=== PATIENT | female | born 1935 | race Two or more races ===

== ENCOUNTER 2020-07-22 21:35 | Emergency (ER) | payer MEDICARE ==
[~2020-07-22] VITALS: Ht 149.9 cm; Wt 60.8 kg
--- NOTE | 2020-07-22 21:59 | NUR ---
ED Nurse Note: Pt walked in from home. Fletcher is axox4 and walks with a steady gait. She states that she was at home and had a ground level fall while in her back yard. She states that she hit her head but did not experience LOC. She presents with purple discoloring raised area above her left eye. She denies blood thinners, asa or drinking alcholol. She also describes severe pain in both shoulders.
[2020-07-22 22:06] VITALS: BP 165/85
[2020-07-22] MEDS ORDERED: Tylenol #3 tab (300mg/30mg) ORAL ONE (22:15)
--- NOTE | 2020-07-22 22:41 | Diagnostic Imaging Report ---
EXAM: CT Head Without Intravenous Contrast CLINICAL HISTORY: PAIN TECHNIQUE: Axial computed tomography images of the head/brain without intravenous contrast. CTDI is 53.4 mGy and DLP is 929.1 mGy-cm. One or more of the following dose reduction techniques were used: automated exposure control, adjustment of the mA and/or kV according to patient size, use of iterative reconstruction technique. COMPARISON: No relevant prior studies available. FINDINGS: Brain: There is age appropriate generalized cerebral atrophy. Negative for mass-effect or intracranial hemorrhage. No significant white matter disease. Ventricles: Unremarkable. No ventriculomegaly. Bones/joints: Unremarkable. No acute fracture. Soft tissues: Unremarkable. Sinuses: Unremarkable as visualized. No acute sinusitis. Mastoid air cells: Unremarkable as visualized. No mastoid effusion. IMPRESSION: No evidence of acute intracranial abnormality.
--- NOTE | 2020-07-22 22:44 | Diagnostic Imaging Report ---
EXAM: CT Maxillofacial Without Intravenous Contrast CLINICAL HISTORY: PAIN TECHNIQUE: Axial computed tomography images of the face without intravenous contrast. CTDI is 15.3 mGy and DLP is 301.7 mGy-cm. One or more of the following dose reduction techniques were used: automated exposure control, adjustment of the mA and/or kV according to patient size, use of iterative reconstruction technique. COMPARISON: No relevant prior studies available. FINDINGS: Motion degraded study. Negative for evidence of orbit or facial bone fracture. Negative for air-fluid levels paranasal sinuses.
--- NOTE | 2020-07-22 23:21 | Diagnostic Imaging Report ---
EXAM: XR Right Humerus, 2 or More Views CLINICAL HISTORY: PAIN TECHNIQUE: Frontal and lateral views of the right humerus. COMPARISON: No relevant prior studies available. FINDINGS: Mildly displaced and impacted right humeral neck fracture. Fracture is likely include the humeral head.
--- NOTE | 2020-07-22 23:22 | Diagnostic Imaging Report ---
EXAM: XR Right Shoulder Complete, 2 or More Views CLINICAL HISTORY: PAIN TECHNIQUE: Two or more views of the right shoulder. COMPARISON: No relevant prior studies available. FINDINGS: Mildly impacted fracture right humeral neck. Diffuse osteopenia. Negative for glenohumeral dislocation.
--- NOTE | 2020-07-22 23:23 | Diagnostic Imaging Report ---
EXAM: XR Left Shoulder Complete, 2 or More Views CLINICAL HISTORY: PAIN TECHNIQUE: Two or more views of the left shoulder. COMPARISON: No relevant prior studies available. FINDINGS: Comminuted mildly impacted left humeral neck fracture that extend to include the left humeral head. Negative for glenohumeral dislocation.
--- NOTE | 2020-07-22 23:25 | Diagnostic Imaging Report ---
EXAM: XR Left Humerus, 2 or More Views CLINICAL HISTORY: PAIN TECHNIQUE: Frontal and lateral views of the left humerus. COMPARISON: No relevant prior studies available. FINDINGS: Comminuted and impacted humeral neck fracture with fractures extending to include the humeral head.
--- NOTE | 2020-07-22 23:26 | Diagnostic Imaging Report ---
EXAM: XR Chest, 1 View CLINICAL HISTORY: PAIN TECHNIQUE: Frontal view of the chest. COMPARISON: No relevant prior studies available. FINDINGS: No acute radiographic findings.
[2020-07-22] MEDS ORDERED: ACETAMINOPHEN-1 EAC1 ORAL (23:47)
[2020-07-22 23:54] VITALS: BP 116/80
--- NOTE | 2020-07-22 23:55 | NUR ---
ER DISCHARGE NOTE: Patient is cleared to be discharged per ERMD, pt is aox4, on room air, with stable vital signs. pt was given dc and prescription instructions, pt was able to verbalize understanding, pt id band removed. pt is able to ambulate with steady gait. pt took all belongings.
--- NOTE | 2020-07-23 01:31 | Emergency Room Report ---
History of Present Illness General Chief Complaint: Multiple Trauma/Fall Source: Patient Present Illness HPI 85-year-old female presents status post fall. Happened today. Tripped and fell forward landing on her face and both arms. Denies LOC. Shows a bruise to her forehead. Pain to both shoulders. Throbbing, 9 out of 10, nonradiating. Denies any other injuries. Denies taking blood thinners. No other aggravating relieving factors. Denies any other associated symptoms Allergies: Coded Allergies: PENICILLINS (Verified Allergy, Unknown, 07/22/20) COVID-19 Screening Contact w/high risk pt: No Experienced COVID-19 symptoms?: No COVID-19 Testing performed CLAMPER: No Patient History Past Medical History: none Past Surgical History: none Pertinent Family History: none Social History: Denies: smoking, alcohol use, drug use Now: No Immunizations: UTD Reviewed Nursing Documentation: PMH: Agreed; PSxH: Agreed Nursing Documentation-PMH Past Medical History: No Stated History Review of Systems All Other Systems: negative except mentioned in HPI Physical Exam Vital Signs Date Time Temp Pulse Resp B/P (MAP) Pulse Ox O2 Delivery O2 Flow Rate FiO2 07/22/20 21:43 97.9 95 16 177/86 (116) 96 Room Air Sp02 EP Interpretation: reviewed, normal General Appearance: no apparent distress, alert, GCS 15, non-toxic Head: normocephalic, other - Ecchymosis/bruising above left eye Eyes: bilateral eye normal inspection, bilateral eye PERRL ENT: hearing grossly normal, normal pharynx, no angioedema, normal voice Neck: full range of motion, supple/symm/no masses Respiratory: chest non-tender, lungs clear, normal breath sounds, speaking full sentences Cardiovascular #1: regular rate, rhythm, no edema Cardiovascular #2: 2+ carotid (R), 2+ carotid (L), 2+ radial (R), 2+ radial (L), 2+ dorsalis pedis (R), 2+ dorsalis pedis (L) Gastrointestinal: normal bowel sounds, non tender, soft, non-distended, no guarding, no rebound Rectal: deferred Genitourinary: normal inspection, no CVA tenderness Musculoskeletal: back normal, normal range of motion, gait/station normal, tender - Bilateral shoulder Neurologic: alert, motor strength/tone normal, oriented x3, sensory intact, responsive, speech normal Psychiatric: judgement/insight normal, memory normal, mood/affect normal, no suicidal/homicidal ideation Reflexes: 3+ bicep (R), 3+ bicep (L), 3+ tricep (R), 3+ tricep (L), 3+ knee (R), 3+ knee (L) Skin: no rash Lymphatic: no adenopathy Procedures Splinting Splinting : Consent: Verbal Pre-Made Type: Shoulder sling Pre-Proc Neuro Vasc Exam: normal Post-Proc Neuro Vasc Exam: normal Patient Tolerated: Well Complications: None Medical Decision Making Diagnostic Impression: Primary Impression: Fracture of humeral head, right, closed Qualified Codes: S42.291A - Other displaced fracture of upper end of right humerus, initial encounter for closed fracture Additional Impressions: Multiple injuries due to trauma Head injury Qualified Codes: S09.90XA - Unspecified injury of head, initial encounter Fracture of humeral head, left, closed Qualified Codes: S42.292A - Other displaced fracture of upper end of left humerus, initial encounter for closed fracture ER Course Hospital Course 85-year-old female presents with head pain bruising, shoulder pain status post fall Differential diagnoses include: skull fx, intracranial injury, concussion Clinical course Patient placed on stretcher. After initial history and physical I ordered CT head/facial bone, x-rays and pain medications CT head and facial bone no acute process X-rays show bilateral humeral head fractures. Discussed with patient and son at bedside. Placed in bilateral shoulder sling. States she has a PMD. I will provide Ortho referrals. Safe for discharge close outpatient follow-up Diagnosis - fracture of humeral head bilateral, head injury, multiple injuries due to trauma Stable and discharged to home with Rx tylenol #3. Followup with PMD/ortho. Return to ED if symptoms recur or worsen Chest X-Ray Diagnostic Results Chest X-Ray Diagnostic Results : Chest X-Ray Ordered: Yes # of Views/Limited/Complete: 1 View Indication: Other EP Interpretation: Yes Interpretation: no consolidation, no effusion, no pneumothorax, no acute cardiopulmonary disease Impression: No acute disease Electronically Signed by: Electronically signed by Rupert Aguilera MD Other X-Ray Diagnostic Results Other X-Ray Diagnostic Results #1: X-Ray ordered: Right shoulder # of Views/Limited Vs Complete: 3 View Indication: Pain EP Interpretation: Yes Interpretation: no dislocation, no soft tissue swelling, other - Right hu meral head fracture Impression: Other - Fracture Electronically Signed by: Electronically signed by Rupert Aguilera MD Other X-Ray Diagnostic Results #2: X-Ray ordered: Right humerus # of Views/Limited Vs Complete: 2 View Indication: Pain EP Interpretation: Yes Interpretation: no dislocation, no soft tissue swelling, other - Humeral head fracture Impression: Other - Fracture Electronically Signed by: Electronically signed by Rupert Aguilera MD Other X-Ray Diagnostic Results #3: X-Ray ordered: Left shoulder # of Views/Limited Vs Complete: 3 View Indication: Pain EP Interpretation: Yes Interpretation: no dislocation, no soft tissue swelling, other - Left humeral head fracture Impression: Other - Fracture Electronically Signed by: Electronically signed by Rupert Aguilera MD Other X-Ray Diagnostic Results #4: X-Ray ordered: Left humerus # of Views/Limited Vs Complete: 2 View Indication: Pain EP Interpretation: Yes Interpretation: no dislocation, no soft tissue swelling, other - Left humeral head fracture Impression: Other - Left humeral fracture Electronically Signed by: Electronically signed by Rupert Aguilera MD CT/MRI/US Diagnostic Results CT/MRI/US Diagnostic Results #1: Imaging Test Ordered: CT Head Impression Procedure: CT Head no Contrast EXAM: CT Head Without Intravenous Contrast CLINICAL HISTORY: PAIN TECHNIQUE: Axial computed tomography images of the head/brain without intravenous contrast. CTDI is 53.4 mGy and DLP is 929.1 mGy-cm. One or more of the following dose reduction techniques were used: automated exposure control, adjustment of the mA and/or kV according to patient size, use of iterative reconstruction technique. COMPARISON: No relevant prior studies available. FINDINGS: Brain: There is age appropriate generalized cerebral atrophy. Negative for mass-effect or intracranial hemorrhage. No significant white matter disease. Ventricles: Unremarkable. No ventriculomegaly. Bones/joints: Unremarkable. No acute fracture. Soft tissues: Unremarkable. Sinuses: Unremarkable as visualized. No acute sinusitis. Mastoid air cells: Unremarkable as visualized. No mastoid effusion. IMPRESSION: No evidence of acute intracranial abnormality. CT/MRI/US Diagnostic Results #2: Imaging Test Ordered: CT Facial Impression Procedure: CT Maxillofacial no Contrast EXAM: CT Maxillofacial Without Intravenous Contrast CLINICAL HISTORY: PAIN TECHNIQUE: Axial computed tomography images of the face without intravenous contrast. CTDI is 15.3 mGy and DLP is 301.7 mGy-cm. One or more of the following dose reduction techniques were used: automated exposure control, adjustment of the mA and/or kV according to patient size, use of iterative reconstruction technique. COMPARISON: No relevant prior studies available. FINDINGS: Motion degraded study. Negative for evidence of orbit or facial bone fracture. Negative for air-fluid levels paranasal sinuses. Last Vital Signs Date Time Temp Pulse Resp B/P (MAP) Pulse Ox O2 Delivery O2 Flow Rate FiO2 07/22/20 23:54 98.0 88 16 116/80 99 Room Air Status: improved Disposition: HOME, SELF-CARE Condition: Stable Scripts Acetaminophen With Codeine (T#3) (TYLENOL #3 TAB*) Y Tab 1 TAB ORAL Q8H PRN for For Pain, #20 TAB Prov: Rupert Aguilera MD 07/22/20 Referrals: Sami Todd MD NON PHYSICIAN (PCP) Junior Willingham MD Patient Instructions: Shoulder Fracture (Proximal Humerus or Glenoid)-[facility] Rupert Aguilera MD Jul 23, 2020 01:31
== END 2020-07-22 23:55 | disposition home or self-care (01) ==
LOC: EMR 22:00
DX: S42.291A Other displaced fracture of upper end of right humerus, initial encounter for closed fracture (principal); S42.292A Other displaced fracture of upper end of left humerus, initial encounter for closed fracture; S09.90XA Unspecified injury of head, initial encounter; T14.90XA Injury, unspecified, initial encounter; W01.10XA Fall on same level from slipping, tripping and stumbling with subsequent striking against unspecified object, initial encounter; Y93.9 Activity, unspecified; Y92.9 Unspecified place or not applicable; Z88.0 Allergy status to penicillin
CPT/HCPCS: 70450; 70486; 71045; 99284